=== PATIENT | male | born 1975 | race Caucasian/White ===

== ENCOUNTER 2018-11-14 10:11 | Emergency (ER) | payer OTHER ==
[~2018-11-14] VITALS: Ht 185.4 cm; Wt 94.3 kg
[2018-11-14 10:23] VITALS: BP 141/84
--- NOTE | 2018-11-14 10:39 | NUR ---
PT HAS LACERATION RIGHT 2ND DIGIT FROM [employer].
--- NOTE | 2018-11-14 10:44 | NUR ---
2ND LEFT DIGIT NAIL HAS SOME DEFORMITY ALSO. GOOD CMS
[2018-11-14] MEDS ORDERED: DIPH,PERTUSS(ACELL),TET VAC/PF 0.5 ML IM-VACC ONE ×2 (10:54→11:00)
[2018-11-14] MEDS ORDERED: LIDOCAINE-MPF 1%, 2ML ONE ×2 (10:54→11:34)
[2018-11-14] MEDS ORDERED: LIDOCAINE-MPF 1%, 5ML INFIL ONE (11:00)
[2018-11-14] MEDS ORDERED: BACITRACIN ZINC OINT 500U/GM, 0.9 GM ONE (11:52)
--- NOTE | 2018-11-14 12:23 | NUR ---
AFTER WOUND DRESSED BY TECH, PT GIVEN DISCHARGE INSTRUCTIONS
== END 2018-11-14 12:26 | disposition home or self-care (01) ==
LOC: ED 11:55
DX: S61.310A Laceration without foreign body of right index finger with damage to nail, initial encounter (principal); X58.XXXA Exposure to other specified factors, initial encounter; Y93.89 Activity, other specified; Y92.009 Unspecified place in unspecified non-institutional (private) residence as the place of occurrence of the external cause; Y99.8 Other external cause status
CPT/HCPCS: 12041; 90471; 90715